=== PATIENT | male | born 1970 | race Caucasian/White ===

== ENCOUNTER 2020-07-24 21:43 | Emergency (ER) | payer MEDICARE, OTHER ==
[~2020-07-24 21:43] MED LIST: COMPAZINE10 MG PO; GABAPENTIN300 MG PO; HYDROCODON-ACE1 EAC4 PO; PERCOCET 7.5/321 TAB PO; VALTREX500 MG PO; VISION FORMULA1 EAC1 PO; VITAMIN B COMP1 EAC1 PO
[2020-07-24 23:56] LABS: BASOPHIL 0.2 % (0-2); EOSINOPHIL 0.1 % (0-5); HCT 40.2 % (42.0-52.0); LYMPHOCYTE 6.9 % (15-48); MCH 34.6 pg (25.0-31.0); MCHC 34.8 g/dL (32.0-36.0); MCV 99.3 fL (78.0-100.0); MONOCYTE 8.2 % (0-12); MPV 9.4 fL (6.0-9.5); NEUTROPHIL 82.7 % (41-80); NRBC 0; PLT 176 K/uL (150-400); RBC 4.05 M/uL (4.70-6.00); RDW 13.9 % (11.5-14.0); WBC 9.1 K/uL (4.0-10.5)
[2020-07-25] LABS: BILIRUBIN NEGATIVE (NEGATIVE); BLOOD NEGATIVE Ery/uL (NEGATIVE); CLARITY CLEAR (CLEAR); COLOR YELLOW (YELLOW); GLUCOSE (U) TRACE mg/dL (NORMAL); LEUKOCYTES NEGATIVE Leu/uL (NEGATIVE); NITRITE NEGATIVE (NEGATIVE); PROTEIN NEGATIVE (NEGATIVE); UROBILINOGEN 0.2 mg/dL (0.2-1.0)
[2020-07-25 00:06] LABS: INR 1.09 (0.9-1.2); PROTHROMBIN TIME 13.4 SECONDS (11.4-13.6); PTT 25.4 SECONDS (22.2-34.7)
[2020-07-25 00:08] LABS: D-DIMER 0.29 ug/mLFEU (0.00-0.41)
[2020-07-25 00:24] LABS: ALBUMIN 3.5 g/dL (3.4-5.0); BILIRUBIN - TOTAL 0.5 mg/dL (0.2-1.0); BUN/CREAT RATIO (CALC) 21.9 RATIO; CREATININE 1.28 mg/dL (0.67-1.17); GLOBULIN (CALCULATION) 2.7 g/dL; MAGNESIUM 1.5 mg/dL (1.8-2.4); POTASSIUM 4.7 mmol/L (3.5-5.1); TOTAL PROTEIN 6.2 g/dL (6.4-8.2)
== END 2020-07-25 02:40 | disposition home or self-care (01) ==
LOC: FER 21:43
PROVIDERS: Emergency Medicine
DX: G62.9 Polyneuropathy, unspecified (principal); R60.0 Localized edema; R06.02 Shortness of breath; Z86.718 Personal history of other venous thrombosis and embolism; Z85.72 Personal history of non-Hodgkin lymphomas; Z79.01 Long term (current) use of anticoagulants
CPT/HCPCS: 36415; 71250; 80053; 81003; 82728; 83615; 83690; 83735; 83880; 84145; 84443; 85025; 85379; 85610; 85730; 93005

== ENCOUNTER 2021-05-04 13:23 | Inpatient (IN) | payer MEDICARE ==
[~2021-05-04] VITALS: Ht 177.8 cm; Wt 92.8 kg
[~2021-05-04 13:23] MED LIST changes: +PULMICORT FLE180 MCG INH; +TESSALON PERLE100 MG PO; +VENTOLIN HFA IN18 GM INH; +ZPAK PO
[2021-05-04 14:24] LABS: BASOPHIL 0 % (0-2); EOSINOPHIL 0 % (0-5); HCT 41.5 % (42.0-52.0); HGB 13.7 g/dl (13.2-18.0); LYMPHOCYTE 8.7 % (15-48); MCH 31.9 pg (25.0-31.0); MCV 96.5 fL (78.0-100.0); MONOCYTE 5.3 % (0-12); MPV 10.6 fL (6.0-9.5); NEUTROPHIL 85.5 % (41-80); NRBC 0; PLT 193 K/uL (150-400); RDW 14.7 % (11.5-14.0); WBC 2.1 K/uL (4.0-10.5)
[2021-05-04] MEDS ORDERED: CYMBALTA 30MG C30 MG PO (23:44)
[2021-05-04] MEDS ORDERED: NOXAFIL100 MG PO (23:45)
[2021-05-04] MEDS ORDERED: ELIQUIS5 MG PO (23:45)
[2021-05-04] MEDS ORDERED: BACTRIM DS TAB1 EACH PO (23:46)
[2021-05-04] MEDS ORDERED: PRILOSEC20 MG PO (23:46)
[2021-05-04] MEDS ORDERED: SYNTHROID50 MCG PO (23:47)
[2021-05-04] MEDS ORDERED: IMITREX100 MG PO (23:47)
[2021-05-04] MEDS ORDERED: JAKAFI10 MG PO (23:48)
[2021-05-04] MEDS ORDERED: JAKAFI5 MG PO (23:49)
[2021-05-04] MEDS ORDERED: PROGRAF0.5 MG PO (23:50)
[2021-05-04] MEDS ORDERED: MAG-OXIDE 400M400 MG PO (23:51)
[2021-05-04] MEDS ORDERED: OYSTER SHELL+D1 EACH PO (23:52)
[2021-05-04] MEDS ORDERED: RESTASIS1 EACH EYEBOTH (23:52)
[2021-05-04] MEDS ORDERED: ASCORBIC ACID500 MG PO (23:53)
[2021-05-04] MEDS ORDERED: THERAGRAN-M PR1 EACH PO (23:53)
[2021-05-05 06:24] LABS: BASOPHIL 0 % (0-2); EOSINOPHIL 0 % (0-5); HCT 39.7 % (42.0-52.0); HGB 13.3 g/dl (13.2-18.0); MCH 32.4 pg (25.0-31.0); MCHC 33.5 g/dL (32.0-36.0); MCV 96.6 fL (78.0-100.0); MONOCYTE 6.2 % (0-12); MPV 10.7 fL (6.0-9.5); NEUTROPHIL 89.5 % (41-80); NRBC 0; PLT 176 K/uL (150-400); RBC 4.11 M/uL (4.70-6.00); RDW 14.9 % (11.5-14.0)
[2021-05-05 06:29] LABS: WBC 6.4 K/uL (4.0-10.5)
[2021-05-05 06:40] LABS: BUN/CREAT RATIO (CALC) 19.4 RATIO; CREATININE 1.08 mg/dL (0.67-1.17); POTASSIUM 4.3 mmol/L (3.5-5.1)
[2021-05-05 09:30] LABS: INR 1.25 (0.9-1.2); PTT 31.8 SECONDS (24.4-34.7)
[2021-05-05 09:31] LABS: D-DIMER 0.3 ug/mLFEU (0.00-0.41)
[2021-05-06 04:16] LABS: BASOPHIL 0.1 % (0-2); EOSINOPHIL 0 % (0-5); HCT 39.7 % (42.0-52.0); HGB 13.1 g/dl (13.2-18.0); LYMPHOCYTE 3.6 % (15-48); MCH 32.1 pg (25.0-31.0); MCV 97.3 fL (78.0-100.0); MONOCYTE 4.1 % (0-12); MPV 9.8 fL (6.0-9.5); NRBC 0; PLT 195 K/uL (150-400); RBC 4.08 M/uL (4.70-6.00); RDW 15.4 % (11.5-14.0); WBC 9.9 K/uL (4.0-10.5)
[2021-05-06 04:20] LABS: NEUTROPHIL 91.6 % (41-80)
[2021-05-06 04:43] LABS: BUN/CREAT RATIO (CALC) 24.8 RATIO; CREATININE 1.13 mg/dL (0.67-1.17); PHOSPHORUS 2.8 mg/dL (2.6-4.7); POTASSIUM 4.6 mmol/L (3.5-5.1)
[2021-05-07 07:16] LABS: IRON % SATURATION 32.6 %SAT (20-50)
[2021-05-07 07:18] LABS: BASOPHIL 0.1 % (0-2); EOSINOPHIL 0 % (0-5); HCT 37.9 % (42.0-52.0); HGB 12.5 g/dl (13.2-18.0); MCH 32.3 pg (25.0-31.0); MCV 97.9 fL (78.0-100.0); MPV 10.1 fL (6.0-9.5); NEUTROPHIL 89.7 % (41-80); NRBC 0; PLT 197 K/uL (150-400); RBC 3.87 M/uL (4.70-6.00); RDW 15.4 % (11.5-14.0); WBC 8.6 K/uL (4.0-10.5)
[2021-05-07 08:09] LABS: ALBUMIN 3.7 g/dL (3.4-5.0); BILIRUBIN - TOTAL 0.3 mg/dL (0.2-1.0); BUN/CREAT RATIO (CALC) 21.1 RATIO; CREATININE 1.33 mg/dL (0.67-1.17); FOLIC ACID (SERUM) 26.4 ng/mL (8.6-58.9); GLOBULIN (CALCULATION) 2.1 g/dL; MAGNESIUM 2.4 mg/dL (1.8-2.4); POTASSIUM 4.8 mmol/L (3.5-5.1); TOTAL PROTEIN 5.8 g/dL (6.4-8.2)
[2021-05-08 07:26] LABS: BASOPHIL 0.1 % (0-2); EOSINOPHIL 0 % (0-5); HCT 36.7 % (42.0-52.0); HGB 12.2 g/dl (13.2-18.0); LYMPHOCYTE 4.3 % (15-48); MCH 32.5 pg (25.0-31.0); MCHC 33.2 g/dL (32.0-36.0); MCV 97.9 fL (78.0-100.0); MONOCYTE 6.9 % (0-12); MPV 10.5 fL (6.0-9.5); NEUTROPHIL 86.8 % (41-80); NRBC 0.3; PLT 205 K/uL (150-400); RBC 3.75 M/uL (4.70-6.00); RDW 15.1 % (11.5-14.0); WBC 10.3 K/uL (4.0-10.5)
[2021-05-08 08:00] LABS: BUN/CREAT RATIO (CALC) 24.3 RATIO; CREATININE 1.11 mg/dL (0.67-1.17); POTASSIUM 4.6 mmol/L (3.5-5.1)
[2021-05-08] MEDS ORDERED: ALBUTEROL HFA INH (13:03)
[2021-05-08] MEDS ORDERED: DEXAMETHASONE 2M2 MG PO ×2 (13:03→13:09)
--- NOTE | 2021-05-08 13:17 | NUR ---
PER DR. MARC, PT. WILL D/C HOME THIS DATE AND WILL REQUIRE 2 L OF O2. TC TO PT. ROOM HE IS ISOLATION. ADVISED HIM OF WHAT DR. MARC HAD ORDERED. PT. REQUESTED HAND'S FOR O2. EXPLAINED CHOICE FORM. PT. ACKNOLWEDGED UNDERSTANDING OF THE FORM.
== END 2021-05-08 14:55 | disposition home or self-care (01) | DRG 177 ==
LOC: FER 13:23 → FMS 16:41
PROVIDERS: Internal Medicine; Nurse Practitioner; Physician Assistant; ADMIT Allergy & Immunology Allergy
PROC: XW033E5 Introduction of Remdesivir Anti-infective into Peripheral Vein, Percutaneous Approach, New Technology Group 5 (ICD-10-PCS; principal; 2021-05-04)
PROC: 8E0ZXY6 Isolation (ICD-10-PCS; 2021-05-04)
PROC: XW0DXM6 Introduction of Baricitinib into Mouth and Pharynx, External Approach, New Technology Group 6 (ICD-10-PCS; 2021-05-06)
DX: U07.1 COVID-19 (principal); J12.82 Pneumonia due to coronavirus disease 2019; J96.01 Acute respiratory failure with hypoxia; Z94.84 Stem cells transplant status; N17.9 Acute kidney failure, unspecified; E87.2 Acidosis; K21.9 Gastro-esophageal reflux disease without esophagitis; E03.9 Hypothyroidism, unspecified; Z99.81 Dependence on supplemental oxygen; Z79.01 Long term (current) use of anticoagulants; Z79.899 Other long term (current) drug therapy; Z98.890 Other specified postprocedural states; Z86.718 Personal history of other venous thrombosis and embolism; Z85.72 Personal history of non-Hodgkin lymphomas; Z87.442 Personal history of urinary calculi
CPT/HCPCS: 36415; 36600; 71045; 80048; 80053; 82607; 82746; 82803; 83540; 83550; 83605; 83735; 83880; 84100; 84145; 84484; 85025; 85379; 85610; 85730; 87040; 93005; 94010; 94640; 94664; C9399; J0692; J1100; J7030; J7050; J7120; J8540; U0002

== ENCOUNTER 2021-05-21 10:19 | Inpatient (IN) | payer MEDICARE ==
[~2021-05-21] VITALS: Ht 177.8 cm; Wt 94.1 kg
[~2021-05-21 10:19] MED LIST changes: +ALBUTEROL HFA INH; +ASCORBIC ACID500 MG PO; +BACTRIM DS TAB1 EACH PO; +CYMBALTA 30MG C30 MG PO; +DEXAMETHASONE 2M2 MG PO; +ELIQUIS5 MG PO; +IMITREX100 MG PO; +JAKAFI10 MG PO; +JAKAFI5 MG PO; +MAG-OXIDE 400M400 MG PO; +NOXAFIL100 MG PO; +OYSTER SHELL+D1 EACH PO; +PRILOSEC20 MG PO; +PROGRAF0.5 MG PO; +RESTASIS1 EACH EYEBOTH; +SYNTHROID50 MCG PO; +THERAGRAN-M PR1 EACH PO
[2021-05-21 10:51] LABS: BASOPHIL 0 % (0-2); EOSINOPHIL 0.5 % (0-5); HCT 37.7 % (42.0-52.0); HGB 12.2 g/dl (13.2-18.0); LYMPHOCYTE 4.6 % (15-48); MCH 32.1 pg (25.0-31.0); MCHC 32.4 g/dL (32.0-36.0); MCV 99.2 fL (78.0-100.0); MONOCYTE 6.1 % (0-12); MPV 11.2 fL (6.0-9.5); NEUTROPHIL 88.2 % (41-80); NRBC 0; PLT 110 K/uL (150-400); RDW 15.5 % (11.5-14.0); WBC 6.4 K/uL (4.0-10.5)
[2021-05-21 10:54] LABS: INR 1.18 (0.9-1.2); PROTHROMBIN TIME 14.4 SECONDS (11.8-13.4)
[2021-05-21 10:55] LABS: PTT 39.6 SECONDS (24.4-34.7)
[2021-05-21 10:56] LABS: D-DIMER 0.57 ug/mLFEU (0.00-0.41)
[2021-05-21 11:07] LABS: ALBUMIN 2.6 g/dL (3.4-5.0); BILIRUBIN - TOTAL 0.6 mg/dL (0.2-1.0); BUN/CREAT RATIO (CALC) 14.1 RATIO; CREATININE 1.28 mg/dL (0.67-1.17); GLOBULIN (CALCULATION) 2.9 g/dL; POTASSIUM 4.2 mmol/L (3.5-5.1); TOTAL PROTEIN 5.5 g/dL (6.4-8.2)
[2021-05-21 11:17] LABS: LACTIC ACID 1.4 mmol/L (0.4-1.9)
[2021-05-21 12:12] LABS: BILIRUBIN NEGATIVE (NEGATIVE); BLOOD NEGATIVE Ery/uL (NEGATIVE); CLARITY CLEAR (CLEAR); COLOR YELLOW (YELLOW); GLUCOSE (U) NORMAL (NORMAL); LEUKOCYTES NEGATIVE Leu/uL (NEGATIVE); NITRITE NEGATIVE (NEGATIVE); PROTEIN 2+ mg/dL (NEGATIVE); SPECIFIC GRAVITY 1.025 (1.001-1.030)
[2021-05-21 12:36] LABS: BACTERIA TRACE
[2021-05-21] MEDS ORDERED: ZINC50 M2 PO (15:16)
[2021-05-22 06:51] LABS: BASOPHIL 0 % (0-2); EOSINOPHIL 0 % (0-5); HCT 34.3 % (42.0-52.0); HGB 11.3 g/dl (13.2-18.0); LYMPHOCYTE 4.5 % (15-48); MCH 31.9 pg (25.0-31.0); MCHC 32.9 g/dL (32.0-36.0); MCV 96.9 fL (78.0-100.0); MONOCYTE 4.7 % (0-12); MPV 11.3 fL (6.0-9.5); NEUTROPHIL 90.4 % (41-80); NRBC 0; RBC 3.54 M/uL (4.70-6.00); RDW 14.9 % (11.5-14.0); WBC 4.7 K/uL (4.0-10.5)
[2021-05-22 06:55] LABS: PLT 99 K/uL (150-400)
[2021-05-22 07:40] LABS: CREATININE 1.2 mg/dL (0.67-1.17); MAGNESIUM 1.9 mg/dL (1.8-2.4); POTASSIUM 4.5 mmol/L (3.5-5.1)
--- NOTE | 2021-05-23 06:36 | NUR ---
PATIENT OXYGEN STAT DROPPED TO 72, HE HAD ATTEMPTED SELF TRANSFER FROM CHAIR TO BED. C/O SEVERS CHEST PAIN AND SOA. NEW ORDER RECIEVED AND NOTED FOR MORPHINE 4MG IV NOW AND RT NOTFIED APPLIED OXYGEN VIA VENTI-MASK @ 50% (12 LITER). rEMAINED WITH PATIENT UNTIL STABLE AFTER MED AND OXYGEN SATS NOW 93% STATES CHEST PAIN SUBSIDES.
[2021-05-23 07:14] LABS: BASOPHIL 0 % (0-2); EOSINOPHIL 0 % (0-5); HCT 35.8 % (42.0-52.0); HGB 11.5 g/dl (13.2-18.0); LYMPHOCYTE 3.2 % (15-48); MCH 31.8 pg (25.0-31.0); MCHC 32.1 g/dL (32.0-36.0); MCV 98.9 fL (78.0-100.0); MONOCYTE 4.8 % (0-12); MPV 11.3 fL (6.0-9.5); NEUTROPHIL 91.4 % (41-80); NRBC 0; PLT 131 K/uL (150-400); RBC 3.62 M/uL (4.70-6.00); RDW 15.2 % (11.5-14.0)
[2021-05-23 07:20] LABS: WBC 8.7 K/uL (4.0-10.5)
[2021-05-23 08:15] LABS: BUN/CREAT RATIO (CALC) 25.8 RATIO; CREATININE 1.28 mg/dL (0.67-1.17); POTASSIUM 4.3 mmol/L (3.5-5.1)
--- NOTE | 2021-05-25 13:23 | NUR ---
05/25/21 Marcy Diaz, [phone], telephoned and reported that Mr. White is requesting to complete a Living Will. Ms. Diaz was informed that a referral would be made to the [facility]. A referral was made to [facility].
[2021-05-27 07:00] LABS: BASOPHIL 0.2 % (0-2); EOSINOPHIL 0 % (0-5); HCT 35.9 % (42.0-52.0); HGB 11.8 g/dl (13.2-18.0); LYMPHOCYTE 2.7 % (15-48); MCH 31.7 pg (25.0-31.0); MCHC 32.9 g/dL (32.0-36.0); MCV 96.5 fL (78.0-100.0); MONOCYTE 6.5 % (0-12); MPV 11.1 fL (6.0-9.5); NEUTROPHIL 85.1 % (41-80); NRBC 4.5; PLT 171 K/uL (150-400); RBC 3.72 M/uL (4.70-6.00)
[2021-05-27 07:04] LABS: WBC 8.6 K/uL (4.0-10.5)
[2021-05-27 07:32] LABS: BUN/CREAT RATIO (CALC) 29.7 RATIO; CREATININE 1.18 mg/dL (0.67-1.17); POTASSIUM 5.2 mmol/L (3.5-5.1)
--- NOTE | 2021-05-27 17:03 | NUR ---
PT TRANSFER PACKET FAX TO [facility] [facility] AND CALLED TO CONFIRM ACCEPTANCE
[2021-05-29 06:32] LABS: BASOPHIL 0.4 % (0-2); EOSINOPHIL 0 % (0-5); HCT 37.2 % (42.0-52.0); HGB 12.3 g/dl (13.2-18.0); LYMPHOCYTE 3.1 % (15-48); MCH 31.6 pg (25.0-31.0); MCHC 33.1 g/dL (32.0-36.0); MCV 95.6 fL (78.0-100.0); MONOCYTE 6.9 % (0-12); MPV 11.1 fL (6.0-9.5); NEUTROPHIL 82.1 % (41-80); NRBC 2.9; PLT 215 K/uL (150-400); RBC 3.89 M/uL (4.70-6.00); RDW 15.5 % (11.5-14.0)
[2021-05-29 06:52] LABS: WBC 11.6 K/uL (4.0-10.5)
[2021-05-29 07:12] LABS: BUN/CREAT RATIO (CALC) 36.4 RATIO; CREATININE 1.07 mg/dL (0.67-1.17); MAGNESIUM 2.3 mg/dL (1.8-2.4); POTASSIUM 5.3 mmol/L (3.5-5.1)
[2021-05-30 09:18] LABS: BASOPHIL 0.5 % (0-2); EOSINOPHIL 0 % (0-5); HGB 12.5 g/dl (13.2-18.0); LYMPHOCYTE 3.3 % (15-48); MCH 31.9 pg (25.0-31.0); MCHC 32.1 g/dL (32.0-36.0); MCV 99.5 fL (78.0-100.0); MONOCYTE 7.1 % (0-12); MPV 11.2 fL (6.0-9.5); NEUTROPHIL 81.5 % (41-80); NRBC 2.1; PLT 219 K/uL (150-400); RBC 3.92 M/uL (4.70-6.00); RDW 15.9 % (11.5-14.0)
[2021-05-30 09:35] LABS: WBC 11.5 K/uL (4.0-10.5)
[2021-05-30 09:41] LABS: BUN 42 mg/dL (7-18); BUN/CREAT RATIO (CALC) 36.8 RATIO; CHLORIDE 100 mmol/L (98-107); CO2 (BICARBONATE) 26 mmol/L (21-32); CREATININE 1.14 mg/dL (0.67-1.17); GLUCOSE 255 mg/dL (74-106); POTASSIUM 4.7 mmol/L (3.5-5.1)
[2021-05-30 09:45] LABS: C-REACTIVE PROTEIN < 0.20 mg/dL (<=0.90)
[2021-05-31 07:49] LABS: BASOPHIL 0.5 % (0-2); EOSINOPHIL 0 % (0-5); HCT 37.3 % (42.0-52.0); HGB 12.2 g/dl (13.2-18.0); LYMPHOCYTE 2.4 % (15-48); MCH 32.4 pg (25.0-31.0); MCHC 32.7 g/dL (32.0-36.0); MCV 99.2 fL (78.0-100.0); MONOCYTE 8.4 % (0-12); MPV 11.9 fL (6.0-9.5); NEUTROPHIL 81.1 % (41-80); NRBC 1.9; PLT 232 K/uL (150-400); RBC 3.76 M/uL (4.70-6.00); RDW 15.7 % (11.5-14.0); WBC 12.8 K/uL (4.0-10.5)
[2021-05-31 07:56] LABS: BUN/CREAT RATIO (CALC) 28.6 RATIO; CREATININE 1.12 mg/dL (0.67-1.17); POTASSIUM 4.8 mmol/L (3.5-5.1)
--- NOTE | 2021-05-31 15:26 | NUR ---
Order for Midline reviewed with DENISE Mayer and Dr Newsome, Needs Midline for extended stay in hospital, entered room introduced myself and explained procedure, pt verbalized understanding and consented to Midline placement procedure, prepped a table with sani wipes, and visualized left basilic vein via US, left basilic vein well visualized, began procdure, CHG area per protocol and allowed to dry, draped left arm and prepped my sterile field and procedure, vein was 1 cm down simple puncture, guidewire threaded easily, catheter inserted without difficulty, pt tolerated procedure very well, sterile clear tegaderm dressing placed, draws blood well and flushes well, no adverse events noted.
[2021-06-01 08:10] LABS: CMV QUANT DNA PCR (PLASMA) Negative (Negative)
[2021-06-01 15:44] LABS: BUN/CREAT RATIO (CALC) 25.2 RATIO; CREATININE 1.15 mg/dL (0.67-1.17); POTASSIUM 4.5 mmol/L (3.5-5.1)
[2021-06-02 04:05] LABS: BASOPHIL 0.3 % (0-2); EOSINOPHIL 0.1 % (0-5); HCT 34.9 % (42.0-52.0); HGB 11.2 g/dl (13.2-18.0); LYMPHOCYTE 2.2 % (15-48); MCH 32.3 pg (25.0-31.0); MCHC 32.1 g/dL (32.0-36.0); MCV 100.6 fL (78.0-100.0); MONOCYTE 5.7 % (0-12); MPV 11.3 fL (6.0-9.5); NEUTROPHIL 84.3 % (41-80); NRBC 0.5; PLT 185 K/uL (150-400); RBC 3.47 M/uL (4.70-6.00); WBC 13.4 K/uL (4.0-10.5)
[2021-06-02 04:43] LABS: ALBUMIN 2.5 g/dL (3.4-5.0); BILIRUBIN - TOTAL 0.4 mg/dL (0.2-1.0); CREATININE 1.24 mg/dL (0.67-1.17); GLOBULIN (CALCULATION) 2.2 g/dL; POTASSIUM 5.2 mmol/L (3.5-5.1); TOTAL PROTEIN 4.7 g/dL (6.4-8.2)
[2021-06-03 03:48] LABS: BASOPHIL 0.2 % (0-2); EOSINOPHIL 0 % (0-5); HGB 10.7 g/dl (13.2-18.0); LYMPHOCYTE 1.9 % (15-48); MCH 32.3 pg (25.0-31.0); MCHC 32.4 g/dL (32.0-36.0); MCV 99.7 fL (78.0-100.0); MONOCYTE 4.9 % (0-12); MPV 10.5 fL (6.0-9.5); NRBC 0.3; PLT 157 K/uL (150-400); RBC 3.31 M/uL (4.70-6.00); WBC 14.2 K/uL (4.0-10.5)
[2021-06-03 04:33] LABS: BUN/CREAT RATIO (CALC) 22.6 RATIO; CREATININE 1.24 mg/dL (0.67-1.17); POTASSIUM 4.7 mmol/L (3.5-5.1)
[2021-06-04 04:36] LABS: BASOPHIL 0.2 % (0-2); EOSINOPHIL 0 % (0-5); HCT 33.9 % (42.0-52.0); LYMPHOCYTE 1.9 % (15-48); MCH 32.4 pg (25.0-31.0); MCHC 32.4 g/dL (32.0-36.0); MCV 99.7 fL (78.0-100.0); MONOCYTE 4.3 % (0-12); MPV 10.5 fL (6.0-9.5); NRBC 0.3; PLT 147 K/uL (150-400); RDW 16.3 % (11.5-14.0); WBC 15.9 K/uL (4.0-10.5)
[2021-06-04 04:44] LABS: NEUTROPHIL 87.4 % (41-80)
[2021-06-04 05:13] LABS: ALBUMIN 2.2 g/dL (3.4-5.0); BILIRUBIN - TOTAL 0.5 mg/dL (0.2-1.0); CREATININE 1.11 mg/dL (0.67-1.17); GLOBULIN (CALCULATION) 3.4 g/dL; MAGNESIUM 1.8 mg/dL (1.8-2.4); PHOSPHORUS 4.3 mg/dL (2.6-4.7); POTASSIUM 4.9 mmol/L (3.5-5.1); TOTAL PROTEIN 5.6 g/dL (6.4-8.2)
[2021-06-06 06:03] LABS: BASOPHIL 0.1 % (0-2); EOSINOPHIL 0 % (0-5); HCT 32.4 % (42.0-52.0); HGB 10.4 g/dl (13.2-18.0); MCH 31.6 pg (25.0-31.0); MCHC 32.1 g/dL (32.0-36.0); MCV 98.5 fL (78.0-100.0); MONOCYTE 4.4 % (0-12); MPV 11.6 fL (6.0-9.5); NEUTROPHIL 90.9 % (41-80); NRBC 0.3; PLT 136 K/uL (150-400); RBC 3.29 M/uL (4.70-6.00); RDW 16.2 % (11.5-14.0)
[2021-06-06 06:25] LABS: BUN/CREAT RATIO (CALC) 29.3 RATIO; CREATININE 0.99 mg/dL (0.67-1.17); POTASSIUM 4.5 mmol/L (3.5-5.1)
--- NOTE | 2021-06-06 20:52 | NUR ---
Patient reports 3 instances of diarrhea on June 06. Patient on Bactrim since 05/23 and received 10 doses of levaquin.
[2021-06-07 02:32] LABS: BASOPHIL 0.1 % (0-2); EOSINOPHIL 0 % (0-5); HGB 10.2 g/dl (13.2-18.0); LYMPHOCYTE 1.8 % (15-48); MCHC 31.9 g/dL (32.0-36.0); MCV 100.3 fL (78.0-100.0); MONOCYTE 3.3 % (0-12); MPV 11.1 fL (6.0-9.5); NEUTROPHIL 93.1 % (41-80); NRBC 0.2; PLT 117 K/uL (150-400); RBC 3.19 M/uL (4.70-6.00); RDW 16.3 % (11.5-14.0); WBC 9.9 K/uL (4.0-10.5)
[2021-06-07 02:47] LABS: BILIRUBIN - TOTAL 0.5 mg/dL (0.2-1.0); BUN/CREAT RATIO (CALC) 25.6 RATIO; CREATININE 1.29 mg/dL (0.67-1.17); GLOBULIN (CALCULATION) 3.1 g/dL; POTASSIUM 4.1 mmol/L (3.5-5.1); TOTAL PROTEIN 5.1 g/dL (6.4-8.2)
--- NOTE | 2021-06-08 10:28 | NUR ---
06/08/[address] Villarreal's order, a referral has been made to [facility] for acute jayson. The referral will include therapy notes once available.
--- NOTE | 2021-06-11 15:46 | NUR ---
06/11/21 [facility] declined to accept Mr. White, stating they are unable to get the stem cell medications.
[2021-06-12 08:03] LABS: BASOPHIL 0.2 % (0-2); EOSINOPHIL 0.1 % (0-5); HCT 28.9 % (42.0-52.0); HGB 9.6 g/dl (13.2-18.0); LYMPHOCYTE 4.2 % (15-48); MCH 32.7 pg (25.0-31.0); MCHC 33.2 g/dL (32.0-36.0); MCV 98.3 fL (78.0-100.0); MONOCYTE 5.4 % (0-12); MPV 11.8 fL (6.0-9.5); NEUTROPHIL 82.4 % (41-80); NRBC 5.2; PLT 58 K/uL (150-400); RBC 2.94 M/uL (4.70-6.00); RDW 16.6 % (11.5-14.0); WBC 12.4 K/uL (4.0-10.5)
[2021-06-12 08:24] LABS: BUN/CREAT RATIO (CALC) 25.5 RATIO; CREATININE 0.98 mg/dL (0.67-1.17); MAGNESIUM 1.8 mg/dL (1.8-2.4); POTASSIUM 4.5 mmol/L (3.5-5.1)
[2021-06-13 08:26] LABS: BASOPHIL 0.3 % (0-2); EOSINOPHIL 0.1 % (0-5); HCT 30.1 % (42.0-52.0); HGB 9.9 g/dl (13.2-18.0); LYMPHOCYTE 6.2 % (15-48); MCH 32.5 pg (25.0-31.0); MCHC 32.9 g/dL (32.0-36.0); MCV 98.7 fL (78.0-100.0); MONOCYTE 4.1 % (0-12); MPV 12.4 fL (6.0-9.5); NEUTROPHIL 81.5 % (41-80); NRBC 6.7; PLT 61 K/uL (150-400); RBC 3.05 M/uL (4.70-6.00); RDW 17.4 % (11.5-14.0); RETICULOCYTE COUNT 3.6 % (1.0-2.0)
[2021-06-13 08:54] LABS: WBC 11.4 K/uL (4.0-10.5)
[2021-06-13 09:11] LABS: ALBUMIN 2.5 g/dL (3.4-5.0); ALKALINE PHOSHATASE 82 U/L (46-116); ALT 47 U/L (16-63); AST 23 U/L (15-37); BILIRUBIN - TOTAL 0.5 mg/dL (0.2-1.0); BUN 25 mg/dL (7-18); BUN/CREAT RATIO (CALC) 22.9 RATIO; C-REACTIVE PROTEIN < 0.20 mg/dL (<=0.90); CHLORIDE 102 mmol/L (98-107); CO2 (BICARBONATE) 28 mmol/L (21-32); CREATININE 1.09 mg/dL (0.67-1.17); FOLIC ACID (SERUM) 17.4 ng/mL (8.6-58.9); GLOBULIN (CALCULATION) 2.6 g/dL; GLUCOSE 136 mg/dL (74-106); MAGNESIUM 1.7 mg/dL (1.8-2.4); PHOSPHORUS 4.3 mg/dL (2.6-4.7); TOTAL PROTEIN 5.1 g/dL (6.4-8.2)
[2021-06-13 09:53] LABS: IRON % SATURATION 48.8 %SAT (20-50)
--- NOTE | 2021-06-13 15:28 | NUR ---
06/13/21 [facility] was requested to reconsider accepting patient. They were informed that patient is administered anti rejection medications from his home medications. [facility] denied stating it would be a safety issue because they cannot get the medications should the patient deplete his supply of medication.
--- NOTE | 2021-06-14 16:42 | NUR ---
06/14/21 Mr. White lives alone. He has the support of a neighbor, brother and parents. He reports to have home 02 at 3 L and portable tanks. Mr. White was agreeable for HH services. He did not have a preference. A referral was made to [facility]. - A report was given to Denice Jefferson
[2021-06-14] MEDS ORDERED: DULERA 200 MCG8.8 GM INH (19:59)
[2021-06-14] MEDS ORDERED: DEXAMETHASONE1 MG PO (19:59)
[2021-06-14] MEDS ORDERED: MUCINEX 600MG600 MG PO (19:59)
[2021-06-14] MEDS ORDERED: SINGULAIR10 MG PO (19:59)
[2021-06-16 12:10] LABS: HISTOPLASMA GAL'MANNAN AG SER <0.5 (<0.5 ng/mL)
== END 2021-06-14 20:30 | disposition home health service (06) | DRG 177 ==
LOC: FER 10:19 → FMS 12:33 → FICU 06-02 09:34 → FMS 06-11 15:04
PROVIDERS: Allergy & Immunology Allergy; Emergency Medicine; Internal Medicine; Nurse Practitioner; ADMIT Internal Medicine
PROC: XW033E5 Introduction of Remdesivir Anti-infective into Peripheral Vein, Percutaneous Approach, New Technology Group 5 (ICD-10-PCS; principal; 2021-05-22)
PROC: XW0DXM6 Introduction of Baricitinib into Mouth and Pharynx, External Approach, New Technology Group 6 (ICD-10-PCS; 2021-05-22)
PROC: 05HY33Z Insertion of Infusion Device into Upper Vein, Percutaneous Approach (ICD-10-PCS; 2021-05-31)
PROC: 5A0935A Assistance with Respiratory Ventilation, Less than 24 Consecutive Hours, High Flow/Velocity Cannula (ICD-10-PCS; 2021-06-03)
PROC: 5A09357 Assistance with Respiratory Ventilation, Less than 24 Consecutive Hours, Continuous Positive Airway Pressure (ICD-10-PCS; 2021-06-03)
PROC: 5A0935A Assistance with Respiratory Ventilation, Less than 24 Consecutive Hours, High Flow/Velocity Cannula (ICD-10-PCS; 2021-06-04)
PROC: 5A09357 Assistance with Respiratory Ventilation, Less than 24 Consecutive Hours, Continuous Positive Airway Pressure (ICD-10-PCS; 2021-06-04)
DX: U07.1 COVID-19 (principal); J12.82 Pneumonia due to coronavirus disease 2019; J96.01 Acute respiratory failure with hypoxia; J15.9 Unspecified bacterial pneumonia; Z94.84 Stem cells transplant status; D84.9 Immunodeficiency, unspecified; N17.9 Acute kidney failure, unspecified; N18.30 Chronic kidney disease, stage 3 unspecified; K21.9 Gastro-esophageal reflux disease without esophagitis; E03.9 Hypothyroidism, unspecified; R55 Syncope and collapse; E87.5 Hyperkalemia; R73.03 Prediabetes; T38.0X5A Adverse effect of glucocorticoids and synthetic analogues, initial encounter; Y95 Nosocomial condition; Z88.8 Allergy status to other drugs, medicaments and biological substances; Z90.5 Acquired absence of kidney; Z85.72 Personal history of non-Hodgkin lymphomas; Z86.718 Personal history of other venous thrombosis and embolism; Z98.890 Other specified postprocedural states; Z79.01 Long term (current) use of anticoagulants; Z79.899 Other long term (current) drug therapy
CPT/HCPCS: 36415; 36600; 71045; 71046; 71275; 80048; 80053; 80197; 81001; 82550; 82607; 82728; 82746; 82803; 82962; 83036; 83540; 83550; 83605; 83735; 83880; 84100; 84145; 85025; 85379; 85610; 85730; 86140; 87040; 87070; 87205; 87385; 87497; 94640; 94660; 97162; 97166; 97530; 97530-GP; 97535; C9399; J0360; J0456; J0692; J1100; J1335; J1570; J2020; J2250; J2270; J7030; J7050; J7120; J8540; U0002

== ENCOUNTER 2021-06-19 15:52 | Emergency (ER) | payer MEDICARE ==
[~2021-06-19 15:52] MED LIST changes: +DEXAMETHASONE1 MG PO; +DULERA 200 MCG8.8 GM INH; +MUCINEX 600MG600 MG PO; +SINGULAIR10 MG PO; +ZINC50 M2 PO
[2021-06-19 16:39] LABS: BASOPHIL 0.2 % (0-2); EOSINOPHIL 1.4 % (0-5); HCT 25.4 % (42.0-52.0); HGB 8.1 g/dl (13.2-18.0); LYMPHOCYTE 12.2 % (15-48); MCH 32.9 pg (25.0-31.0); MCHC 31.9 g/dL (32.0-36.0); MONOCYTE 6.7 % (0-12); MPV 11.4 fL (6.0-9.5); NEUTROPHIL 73.5 % (41-80); NRBC 5.3; PLT 81 K/uL (150-400); RBC 2.46 M/uL (4.70-6.00); RDW 19.2 % (11.5-14.0); WBC 4.2 K/uL (4.0-10.5)
[2021-06-19 16:42] LABS: MCV 103.3 fL (78.0-100.0)
[2021-06-19 16:51] LABS: INR 1.18 (0.9-1.2); PROTHROMBIN TIME 14.4 SECONDS (11.8-13.4); PTT 20.6 SECONDS (24.4-34.7)
[2021-06-19 16:53] LABS: D-DIMER 1.4 ug/mLFEU (0.00-0.41)
[2021-06-19 17:01] LABS: ALBUMIN 2.1 g/dL (3.4-5.0); BILIRUBIN - TOTAL 0.5 mg/dL (0.2-1.0); BUN/CREAT RATIO (CALC) 26.9 RATIO; C-REACTIVE PROTEIN 8.2 mg/dL (<=0.90); CREATININE 1.04 mg/dL (0.67-1.17); GLOBULIN (CALCULATION) 3.1 g/dL; POTASSIUM 4.6 mmol/L (3.5-5.1); TOTAL PROTEIN 5.2 g/dL (6.4-8.2)
[2021-06-19 17:02] LABS: LACTIC ACID 1.1 mmol/L (0.4-1.9)
[2021-06-19 17:20] LABS: INFLUENZA A NAA NEGATIVE (NEGATIVE)
[2021-06-19 17:28] LABS: CORONAVIRUS 2019 SARS-COV-2 POSITIVE (NEGATIVE)
[2021-06-19 17:30] LABS: BILIRUBIN NEGATIVE (NEGATIVE); BLOOD NEGATIVE Ery/uL (NEGATIVE); CLARITY CLEAR (CLEAR); COLOR YELLOW (YELLOW); GLUCOSE (U) NORMAL (NORMAL); LEUKOCYTES NEGATIVE Leu/uL (NEGATIVE); NITRITE NEGATIVE (NEGATIVE); PROTEIN TRACE (LOW) mg/dL (NEGATIVE); UROBILINOGEN 0.2 mg/dL (0.2-1.0); pH 6.5 (5.0-9.0)
== END 2021-06-19 22:11 | disposition other institution (70) ==
LOC: FER 15:52
PROVIDERS: Emergency Medicine
DX: U07.1 COVID-19 (principal); J12.82 Pneumonia due to coronavirus disease 2019; J96.01 Acute respiratory failure with hypoxia; J98.2 Interstitial emphysema; N18.30 Chronic kidney disease, stage 3 unspecified; Z88.8 Allergy status to other drugs, medicaments and biological substances
CPT/HCPCS: 36415; 36600; 71045; 71250; 80053; 81003; 82803; 83605; 83880; 84145; 84484; 85025; 85379; 85610; 85730; 86140; 87088; 93005; J2250; J2704; J7030; U0002

== ENCOUNTER 2022-01-14 14:22 | Emergency (ER) | payer MEDICARE ==
[2022-01-14 15:34] LABS: BASOPHIL 0.6 % (0-2); EOSINOPHIL 5.2 % (0-5); HCT 39.4 % (42.0-52.0); HGB 13.1 g/dl (13.2-18.0); LYMPHOCYTE 3.5 % (15-48); MCH 31.5 pg (25.0-31.0); MCHC 33.2 g/dL (32.0-36.0); MCV 94.7 fL (78.0-100.0); MONOCYTE 9.4 % (0-12); MPV 9.8 fL (6.0-9.5); NEUTROPHIL 80.6 % (41-80); NRBC 0; PLT 275 K/uL (150-400); RBC 4.16 M/uL (4.70-6.00); RDW 15.3 % (11.5-14.0); WBC 8.5 K/uL (4.0-10.5)
[2022-01-14 15:58] LABS: CORONAVIRUS 2019 SARS-COV-2 NEGATIVE (NEGATIVE); INFLUENZA A NAA NEGATIVE (NEGATIVE)
[2022-01-14 16:04] LABS: ALBUMIN 3.3 g/dL (3.4-5.0); BILIRUBIN - TOTAL 0.6 mg/dL (0.2-1.0); BUN/CREAT RATIO (CALC) 6.3 RATIO; CREATININE 1.11 mg/dL (0.67-1.17); GLOBULIN (CALCULATION) 3.2 g/dL; POTASSIUM 3.5 mmol/L (3.5-5.1); TOTAL PROTEIN 6.5 g/dL (6.4-8.2)
[2022-01-14] MEDS ORDERED: MEDROL 4MG DOSEP4 MG PO (18:37)
[2022-01-14] MEDS ORDERED: VENTOLIN (2.5 MG/3 M INH (18:37)
[2022-01-14] MEDS ORDERED: NEBULIZER UNIT NEB (18:37)
== END 2022-01-14 18:58 | disposition home or self-care (01) ==
LOC: FER 14:22
PROVIDERS: Emergency Medicine
DX: J06.9 Acute upper respiratory infection, unspecified (principal); Z20.822 Contact with and (suspected) exposure to COVID-19; Z28.310 Unvaccinated for COVID-19
CPT/HCPCS: 36415; 36600; 71045; 71275; 80053; 82803; 83605; 84145; 84484; 85025; 85379; 87040; 93005; 94640; 94664; 94762; J2930; Q9967; U0002